=== PATIENT | female | born 1950 | race Caucasian/White ===

== ENCOUNTER 2018-03-31 15:36 | Emergency (ER) | payer OTHER ==
--- NOTE | 2018-03-31 20:06 | RAD REPORT ---
EXAM DESCRIPTION: RAD - Foot Left 3 View - 03/31/2018 7:50 pm CLINICAL HISTORY: Trauma, foot and ankle pain COMPARISON: None. FINDINGS: No fracture, dislocation or periosteal reaction. No acute or destructive bony process. No air or foreign body in the soft tissues. IMPRESSION: Negative left foot examination.
--- NOTE | 2018-03-31 20:39 | EDPHYS ---
Physician Documentation [facility] Name: Patsy Barnes Age: 67 yrs Sex: Female : 1950 Arrival Date: 03/31/2018 Time: 15:39 Bed 9 Private MD: ED Physician Deepak Finn HPI: 03/31 19:15 This 67 yrs old Female presents to ER via Ambulatory with complaints of Foot jmm Injury. 19:15 The patient presents with an injury, pain, that is acute. The complaints affect the jmm anterior aspect of left ankle and dorsum of left foot. Onset: The symptoms/episode began/occurred acutely, this morning. Modifying factors: The symptoms are alleviated by elevating leg, the symptoms are aggravated by movement, weight bearing. 19:15 Associated signs and symptoms: Pertinent negatives fever, tingling. jmm Historical: - Allergies: 16:10 PENICILLINS (Rash); hb - Immunization history:: Adult Immunizations up to date. - Social history:: Smoking status: Patient/guardian denies using tobacco. - Ebola Screening: : No symptoms or risks identified at this time. ROS: 19:15 Constitutional: Negative for fever, chills, and weight loss. jmm 19:15 Respiratory: Negative for shortness of breath. 19:15 MS/extremity: Positive for pain. 19:15 Skin: Negative for erythema. 19:15 Neuro: Negative for numbness. 19:15 All other systems are negative. Exam: 19:15 Constitutional: This is a well developed, well nourished patient who is awake, alert, jmm and in no acute distress. Head/Face: atraumatic. 19:15 Cardiovascular: Rate: normal. 19:15 Respiratory: the patient does not display signs of respiratory distress. 19:15 Abdomen/GI: Inspection: abdomen appears normal, distension, is not seen. 19:15 Back: ROM is Vital Signs: 16:10 BP 130 / 78; Pulse 65; Resp 16; Temp 98.2; Pulse Ox 98% on R/A; Weight 61.23 kg; Height hb 5 ft. 6 in. (167.64 cm); Pain 2/10; 20:57 Pulse 68; Resp 18; Pulse Ox 100% ; aj1 16:10 Body Mass Index 21.79 (61.23 kg, 167.64 cm) hb MDM: 19:12 Patient medically screened. [facility] 20:27 Data reviewed: vital signs, nurses notes, radiologic studies, plain films. [facility] 20:27 Counseling: I had a detailed discussion with the patient and/or guardian regarding: the [facility] historical points, exam findings, and any diagnostic results supporting the discharge/admit diagnosis, the presence of at least one elevated blood pressure reading (>120/80) during this emergency department visit, radiology results, the need for outpatient follow up, to return to the emergency department if symptoms worsen or persist or if there are any questions or concerns that arise at home. 03/31 19:13 Order name: Ankle Left 3 View XRAY [facility] 03/31 19:13 Order name: Foot Left 3 View XRAY; Complete Time: 20:27 [facility] Administered Medications: No medications were administered Disposition: 21:46 Co-signature as Attending Physician, Deepak Finn MD I agree with the assessment and kdr plan of care. Disposition: 03/31/18 20:39 Discharged to Home. Impression: Other sprain of left foot. - Condition is Stable. - Discharge Instructions: Foot Sprain. - Prescriptions for Ibuprofen 600 mg Oral Tablet - take 1 tablet by ORAL route every 6 hours As needed take with food; 30 tablet. - Medication Reconciliation Form, Thank You Letter, Antibiotic Education, Prescription Opioid Use form. - Follow up: Paulie Gutierrez MD; When: 1 - 2 days; Reason: Continuance of care. Signatures: Dispatcher [employer] EDGeetha Bagley RN RN aj1 Deepak Finn MD MD [facility] Chino Pope PA PA [facility] Paris Suárez RN RN Corrections: (The following items were deleted from the chart) 20:59 20:39 03/31/2018 20:39 Discharged to Home. Impression: Other sprain of left foot. aj1 Condition is Stable. Forms are Medication Reconciliation Form, Thank You Letter, Antibiotic Education, Prescription Opioid Use. Follow up: Dr. Paulie Gutierrez; When: 1 - 2 days; Reason: Continuance of care. [facility]
--- NOTE | 2018-03-31 20:39 | ER ---
Nurse's Notes [facility] Name: Patsy Barnes Age: 67 yrs Sex: Female : 1950 Arrival Date: 03/31/2018 Time: 15:39 Bed 9 Private MD: Diagnosis: Other sprain of left foot Presentation: 03/31 16:08 Presenting complaint: Patient states: Stepped into [place] [facility] this morning, now c/o hb LEFT foot pain 2/10. Transition of care: patient was not received from another setting of care. Onset of symptoms was March 31, 2018. Risk Assessment: Do you want to hurt yourself or someone else? Patient reports no desire to harm self or others. Initial Sepsis Screen: Does the patient meet any 2 criteria? No. Patient's initial sepsis screen is negative. Does the patient have a suspected source of infection? No. Patient's initial sepsis screen is negative. Care prior to arrival: Medication(s) given: Aleve at 1300 today. 16:08 Method Of Arrival: Ambulatory 16:08 Acuity: VANESSA 4 hb Historical: - Allergies: 16:10 PENICILLINS (Rash); hb - Immunization history:: Adult Immunizations up to date. - Social history:: Smoking status: Patient/guardian denies using tobacco. - Ebola Screening: : No symptoms or risks identified at this time. Screenin:30 Abuse screen: Denies threats or abuse. Denies injuries from another. Nutritional sg screening: No deficits noted. Tuberculosis screening: No symptoms or risk factors identified. Never had TB. Fall Risk None identified. Assessment: 18:30 General: Appears in no apparent distress. comfortable, well groomed, well developed, sg well nourished, Behavior is calm, cooperative, appropriate for age. Pain: Complains of pain in left foot Quality of pain is described as throbbing. Neuro: No deficits noted. Cardiovascular: No deficits noted. Denies chest pain, diaphoresis, fatigue, lightheadedness, nausea, palpitations, shortness of breath, syncope, vomiting. Respiratory: Airway is patent Respiratory effort is even, unlabored, Respiratory pattern is regular, symmetrical, Breath sounds are clear. GI: No signs and/or symptoms were reported involving the gastrointestinal system. : No signs and/or symptoms were reported regarding the genitourinary system. EENT: No signs and/or symptoms were reported regarding the EENT system. Derm: Skin is pink, warm \T\ dry. Musculoskeletal: Circulation, motion, and sensation intact. Range of motion: intact in all extremities, Swelling absent. 19:30 Reassessment: Patient appears in no apparent distress at this time. No changes from aj1 previously documented assessment. Patient and/or family updated on plan of care and expected duration. Pain level reassessed. Patient is alert, oriented x 3, equal unlabored respirations, skin warm/dry/pink. 20:30 Reassessment: Patient appears in no apparent distress at this time. No changes from aj1 previously documented assessment. Patient and/or family updated on plan of care and expected duration. Pain level reassessed. Patient is alert, oriented x 3, equal unlabored respirations, skin warm/dry/pink. Vital Signs: 16:10 BP 130 / 78; Pulse 65; Resp 16; Temp 98.2; Pulse Ox 98% on R/A; Weight 61.23 kg; Height hb 5 ft. 6 in. (167.64 cm); Pain 2/10; 20:57 Pulse 68; Resp 18; Pulse Ox 100% ; aj1 16:10 Body Mass Index 21.79 (61.23 kg, 167.64 cm) hb ED Course: 15:39 Patient arrived in ED. sb2 16:10 Triage completed. hb 16:10 Arm band placed on left wrist. hb 18:30 No provider procedures requiring assistance completed. 18:36 Chino Pope PA is PHCP. [facility] 18:36 Deepak Finn MD is Attending Physician. [facility] 19:30 Patient has correct armband on for positive identification. aj1 19:49 X-ray completed. Portable x-ray completed in exam room. Patient tolerated procedure bb2 well. 19:50 Ankle Left 3 View XRAY In Process Unspecified. EDMS 19:50 Foot Left 3 View XRAY In Process Unspecified. EDMS 20:01 Geetha Cain, ALANNA is Primary Nurse. aj1 20:38 Paulie Gutierrez MD is Referral Physician. [facility] 20:57 Patient did not have IV access during this emergency room visit. aj1 Administered Medications: No medications were administered Outcome: 20:39 Discharge ordered by . [facility] 20:57 Discharged to home ambulatory. aj1 20:57 Condition: good 20:57 Discharge instructions given to patient, Instructed on discharge instructions, follow up and referral plans. Demonstrated understanding of instructions, follow-up care. 20:59 Patient left the ED. aj1 Signatures: Dispatcher [employer] EDGeetha Bagley RN RN aj1 Jamie Benjamin RN RN Chino Mac PA PA jmm Baxter, Heather, RN RN hb Bock, Brittany bb2 Marichuy Chang2
--- NOTE | 2018-04-01 09:51 | RAD REPORT ---
EXAM DESCRIPTION: RAD - Ankle Left 3 View - 03/31/2018 7:50 pm CLINICAL HISTORY: Trauma to the foot and ankle, pain. COMPARISON: None. FINDINGS: No acute fracture. No dislocation or periosteal reaction. No joint effusion seen. No joint space narrowing. No soft tissue abnormality. In the diaphyseal metaphyseal junction there is an ill-defined 3 cm area of decreased density. Cortex is slightly thinned. A vague diminished density is seen in the distal fibula as well. There is a con cavity to the anterior tibia not typically seen. History does not indicate pain in this location. The bone changes may be the sequela of a prior fracture. This needs correlation with history. Focal lyti c bone lesion cannot be excluded. Correlation is needed with any localizing pain to the distal tibia and fibula approximately 4 cm above the ankle joint. IMPRESSION: 1. No acute fracture change. A 3 cm area of decreased density in the distal tibia could be remodeling from a prior fracture. This needs correlation with history. A more aggressive bone lesi on cannot be excluded. 2. If there is no history of remote trauma or prior fracture in the area of lucency, follow-up MR diane ging would be recommended.
== END 2018-03-31 20:59 | disposition home or self-care (01) ==
LOC: ER 15:36
DX: S93.692A Other sprain of left foot, initial encounter (principal); Z88.0 Allergy status to penicillin
CPT/HCPCS: 99283

== ENCOUNTER 2019-05-23 11:37 | Emergency (ER) | payer OTHER ==
--- OUTSIDE RECORDS SUMMARY | 2019-05-23 11:38 | XMS REPORT ---
:1950 Author Organization [employer] Care Team Providers Name Role Phone Sayda Layne Provider Role Unavailable Allergies, Adverse Reactions, Alerts Substance Reaction Event Type penicillin rash Drug Allergy Problems Problem Type Condition Code Onset Dates Condition Status Problem Osteopenia M85.80 Active Problem HTN (hypertension) I10 Active Assessment Other chest pain R07.89 Active Assessment Osteopenia M85.80 Active Assessment HTN (hypertension) I10 Active Medications Medication Code Code Instructions Start End Status Dosage System Date Date Coenzyme Q10 NDC 42357970717 100 MG Orally Active 1 capsule Once a day with a meal Calcium 600 NDC 26985073042 600 MG Orally Active as directed Results No Known Results Summary Purpose [employer] Submission
--- OUTSIDE RECORDS SUMMARY | 2019-05-23 11:38 | XMS REPORT ---
:1950 Author Organization [employer] Care Team Providers Name Role Phone Sayda Layne Provider Role Unavailable Allergies, Adverse Reactions, Alerts Substance Reaction Event Type penicillin rash Drug Allergy Problems Problem Type Condition Code Onset Dates Condition Status Problem Osteopenia M85.80 Active Problem HTN (hypertension) I10 Active Assessment Encounter for screening for Z13.820 Active osteoporosis Assessment Medicare annual wellness visit, Z00.00 Active subsequent Assessment Encounter for screening mammogram Z12.31 Active for breast cancer Medications Medication Code Code Instructions Start End Status Dosage System Date Date Coenzyme Q10 [facility] 98466983227 100 MG Orally Active 1 capsule Once a day with a meal Calcium 600 ND 40456349056 600 MG Orally Active as directed Results No Known Results Summary Purpose [employer] Submission
--- NOTE | 2019-05-23 12:23 | EDPHYS ---
Physician Documentation [facility] Name: Patsy Barnes Age: 69 yrs Sex: Female : 1950 Arrival Date: 05/23/2019 Time: 11:41 Bed 7 Private MD: ED Physician Isreal Lopez HPI: 05/23 12:14 This 69 yrs old Female presents to ER via Ambulatory with complaints of High rn Blood Pressure. 12:14 The patient has elevated blood pressure and discovered this at home. Onset: The rn symptoms/episode began/occurred at an unknown time. Modifying factors:. Severity of symptoms: At its worst the blood pressure was moderate, in the emergency department the blood pressure is improved. The patient has experienced similar episodes in the past. Reports feels "fuzzy", denies focal neurological problems, no headache/chest pain/abd pain/vomiting/vision changes. Reports lately blood pressure around 140s, but today was much higher, feels better now and has come down without any medication or intervention. Reports was on BP meds before but hasn't taken them for some time. . Historical: - Allergies: 11:43 PENICILLINS (rash); hj - PMHx: 11:43 None; hj - PSHx: 11:43 None; hj - Immunization history:: Adult Immunizations up to date. - Social history:: Smoking status: Patient/guardian denies using tobacco. - Family history:: not pertinent. - Ebola Screening: : No symptoms or risks identified at this time. - Hospitalizations: : No recent hospitalization is reported. ROS: 12:14 Constitutional: Negative for fever, chills, and weight loss, Eyes: Negative for injury, rn pain, redness, and discharge, Neck: Negative for injury, pain, and swelling, Cardiovascular: Negative for chest pain, palpitations, and edema, Respiratory: Negative for shortness of breath, cough, wheezing, and pleuritic chest pain, Abdomen/GI: Negative for abdominal pain, nausea, vomiting, diarrhea, and constipation, MS/Extremity: Negative for injury and deformity, Skin: Negative for injury, rash, and discoloration, Neuro: Negative for headache, weakness, numbness, tingling, and seizure. Exam: 12:14 Constitutional: This is a well developed, well nourished patient who is awake, alert, rn and in no acute distress. Head/Face: Normocephalic, atraumatic. Eyes: Pupils equal round and reactive to light, extra-ocular motions intact. Lids and lashes normal. Conjunctiva and sclera are non-icteric and not injected. Cornea within normal limits. Periorbital areas with no swelling, redness, or edema. ENT: MMM Cardiovascular: Regular rate and rhythm. No pulse deficits. Respiratory: Lungs have equal breath sounds bilaterally, clear to auscultation. No increased work of breathing, no retractions or nasal flaring. Abdomen/GI: Soft, non-tender Skin: Warm, dry MS/ Extremity: Pulses equal, no cyanosis. Neurovascular intact. Full, normal range of motion. Equal circumference. Neuro: Awake and alert, GCS 15, oriented to person, place, time, and situation. Cranial nerves II-XII grossly intact. Motor strength 5/5 in all extremities. Sensory grossly intact. Cerebellar exam normal. Normal gait. Vital Signs: 11:43 BP 173 / 76; Pulse 80; Resp 18; Temp 98.4(TE); Pulse Ox 100% on R/A; Weight 63.5 kg; hj Height 5 ft. 5 in. (165.10 cm); Pain 0/10; 11:55 BP 164 / 82; Pulse 78; Resp 16; Pulse Ox 100% ; bp 12:18 BP 150 / 82; Pulse 75; Resp 16; Pulse Ox 99% ; bp 11:43 Body Mass Index 23.30 (63.50 kg, 165.10 cm) MDM: 11:47 Patient medically screened. rn 12:14 Differential diagnosis: Malignant HTN. Data reviewed: vital signs, nurses notes, and as rn a result, I will discharge patient. Counseling: I had a detailed discussion with the patient and/or guardian regarding: the historical points, exam findings, and any diagnostic results supporting the discharge/admit diagnosis, the need for outpatient follow up, to return to the emergency department if symptoms worsen or persist or if there are any questions or concerns that arise at home. Special discussion: I discussed with the patient/guardian in detail that at this point there is no indication for admission to the hospital. It is understood, however, that if the symptoms persist or worsen the patient needs to return immediately for re-evaluation. Based on the history and exam findings, there is no indication for further emergent testing or inpatient evaluation. I discussed with the patient/guardian the need to see the primary care provider for further evaluation of the symptoms. ED course: Pt currently asymptomatic, offered screening blood tests, patient declines, states will take BP diary as we discussed and f/u with pcp. . Administered Medications: No medications were administered Disposition: 05/23/19 12:22 Discharged to Home. Impression: Hypertension. - Condition is Stable. - Discharge Instructions: Hypertension. - Medication Reconciliation Form, Thank You Letter, Antibiotic Education, Prescription Opioid Use form. - Follow up: Private Physician; When: As needed; Reason: Recheck today's complaints, Re-evaluation by your physician. - Problem is new. - Symptoms have improved. Signatures: Isreal Lopez MD MD rn Joaquin, Henry, RN RN hj Peltier, Brian, RN RN bp Corrections: (The following items were deleted from the chart) 12:27 12:22 05/23/2019 12:22 Discharged to Home. Impression: Hypertension. Condition is bp Stable. Forms are Medication Reconciliation Form, Thank You Letter, Antibiotic Education, Prescription Opioid Use. Follow up: Private Physician; When: As needed; Reason: Recheck today's complaints, Re-evaluation by your physician. Problem is new. Symptoms have improved. rn
--- NOTE | 2019-05-23 12:23 | ER ---
Nurse's Notes [facility] Name: Patsy Barnes Age: 69 yrs Sex: Female : 1950 Arrival Date: 05/23/2019 Time: 11:41 Bed 7 Private MD: Diagnosis: Hypertension Presentation: 05/23 11:42 Presenting complaint: Patient states: my BP is 232/57 around 11:15 and i feel weird; hj denies pain; denies N/V; denies chest pain; reports dizziness;. Transition of care: patient was not received from another setting of care. Onset of symptoms was May 23, 2019. Risk Assessment: Do you want to hurt yourself or someone else? Patient reports no desire to harm self or others. Initial Sepsis Screen: Does the patient meet any 2 criteria? No. Patient's initial sepsis screen is negative. Does the patient have a suspected source of infection? No. Patient's initial sepsis screen is negative. Care prior to arrival: None. 11:42 Method Of Arrival: Ambulatory 11:42 Acuity: VANESSA 3 hj Triage Assessment: 11:45 General: Appears in no apparent distress. comfortable, Behavior is cooperative, bp appropriate for age, anxious. Pain: Denies pain. EENT: No deficits noted. Neuro: Reports dizziness. Cardiovascular: Rhythm is sinus rhythm. Respiratory: No deficits noted. GI: No signs and/or symptoms were reported involving the gastrointestinal system. : No signs and/or symptoms were reported regarding the genitourinary system. Derm: No deficits noted. Musculoskeletal: No deficits noted. Historical: - Allergies: 11:43 PENICILLINS (rash); hj - PMHx: 11:43 None; hj - PSHx: 11:43 None; hj - Immunization history:: Adult Immunizations up to date. - Social history:: Smoking status: Patient/guardian denies using tobacco. - Family history:: not pertinent. - Ebola Screening: : No symptoms or risks identified at this time. - Hospitalizations: : No recent hospitalization is reported. Screenin:57 Abuse screen: Denies threats or abuse. Denies injuries from another. Nutritional bp screening: No deficits noted. Tuberculosis screening: No symptoms or risk factors identified. Fall Risk None identified. Assessment: 11:45 General: SEE TRIAGE NOTE. bp 12:26 Reassessment: PT D/C HOME AMBULATORY, DX WITH HYPERTENSION. bp Vital Signs: 11:43 BP 173 / 76; Pulse 80; Resp 18; Temp 98.4(TE); Pulse Ox 100% on R/A; Weight 63.5 kg; hj Height 5 ft. 5 in. (165.10 cm); Pain 0/10; 11:55 BP 164 / 82; Pulse 78; Resp 16; Pulse Ox 100% ; bp 12:18 BP 150 / 82; Pulse 75; Resp 16; Pulse Ox 99% ; bp 11:43 Body Mass Index 23.30 (63.50 kg, 165.10 cm) ED Course: 11:41 Patient arrived in ED. mr 11:43 Triage completed. hj 11:43 Arm band placed on right wrist. hj 11:46 Isreal Lopez MD is Attending Physician. rn 11:51 Olegario iZmmer, ALANNA is Primary Nurse. bp 11:57 Patient has correct armband on for positive identification. Placed in gown. Bed in low bp position. Call light in reach. Side rails up X2. 12:27 No provider procedures requiring assistance completed. Patient did not have IV access bp during this emergency room visit. Administered Medications: No medications were administered Outcome: 12:22 Discharge ordered by . rn 12:27 Discharged to home ambulatory. bp 12:27 Condition: stable 12:27 Discharge instructions given to patient, Instructed on discharge instructions, follow up and referral plans. Demonstrated understanding of instructions, follow-up care. 12:27 Patient left the ED. bp Signatures: Coco Wolff mr Isreal Lopez MD MD rn Joaquin, Henry, RN RN Olegario Zimmer RN RN bp Corrections: (The following items were deleted from the chart) 11:45 11:43 Pulse 80bpm; Resp 18bpm; Pulse Ox 100% RA; Temp 98.4F Temporal; 63.5 kg; Height 5 hj ft. 5 in.; BMI: 23.3; Pain 0/10; hj
== END 2019-05-23 12:27 | disposition home or self-care (01) ==
LOC: ER 11:37
DX: I10 Essential (primary) hypertension (principal); Z88.0 Allergy status to penicillin
CPT/HCPCS: 99284